=== PATIENT | male | born 1985 | race Hispanic/Latino ===

== ENCOUNTER 2018-08-26 22:56 | Emergency (ER) | payer SELFPAY ==
[2018-08-27 00:35] VITALS: BP 157/111
== END 2018-08-27 02:30 | disposition left against medical advice (07) ==
LOC: ED 22:56
DX: M54.2 Cervicalgia (principal); M54.9 Dorsalgia, unspecified; Z53.21 Procedure and treatment not carried out due to patient leaving prior to being seen by health care provider

== ENCOUNTER 2018-10-21 15:44 | Emergency (ER) | payer OTHER ==
[2018-10-21 16:25] VITALS: BP 144/94
--- NOTE | 2018-10-21 16:25 | Event Note ---
ED Screening Note ED Screening Note: states his blood pressure was elevated before he came to the emergency room pt has never been on blood pressure medication previously but states it has been elevated in the past states he has had intermittent blurry vision pmhx TBI, herniated disc sees a neurologist and chiropractor +marijuana use denies tobacco use denies ETOH use This initial assessment/diagnostic orders/clinical plan/treatment(s) is/are subject to change based on patients health status, clinical progression and re-assessment by fellow clinical providers in the ED. Further treatment and workup at subsequent clinical providers discretion. Patient/guardian urged not to elope from the ED as their condition may be serious if not clinically assessed and managed. Initial orders include: labs, CT head
[2018-10-21 16:46] LABS: Basophils % (Auto) 0.4 % (0.0-1.8); Eosinophils # (Auto) 0.1 K/mm3 (0.0-0.4); Eosinophils % (Auto) 0.7 % (0.0-4.3); Hemoglobin 15.5 gm/dl (11.8-15.2); Lymphocytes # (Auto) 2.8 K/mm3 (1.2-5.4); Lymphocytes % (Auto) 21.8 % (13.4-35.0); Mean Corpuscular HGB Conc 32 % (32-34); Mean Corpuscular Volume 87 fl (84-94); Monocytes % (Auto) 7.7 % (0.0-7.3); Platelet Count 247 K/mm3 (140-440); Red Blood Count 5.53 M/mm3 (3.65-5.03); Red Cell Distribution Width 14.9 % (13.2-15.2)
[2018-10-21 17:21] LABS: BUN/Creatinine Ratio 14; Blood Urea Nitrogen 14 mg/dL (9-20); Calcium 9.9 mg/dL (8.4-10.2); Hemolysis Index 16
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
== END 2018-10-21 19:35 | disposition home or self-care (01) ==
LOC: ED 15:44
DX: I10 Essential (primary) hypertension (principal); J45.909 Unspecified asthma, uncomplicated; F17.200 Nicotine dependence, unspecified, uncomplicated; Z79.899 Other long term (current) drug therapy
CPT/HCPCS: 36415; 70450; 80048; 85025; 99284

== ENCOUNTER 2019-11-03 22:31 | Emergency (ER) | payer SELFPAY ==
[2019-11-04] MEDS ORDERED: HYDROcodone/ACETAMINOPHEN 5-325 MG TAB PO ONE (04:33)
[2019-11-04] MEDS ORDERED: IBUPROFEN 800 MG TAB PO ONE (04:33)
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
[2019-11-04 06:40] VITALS: BP 121/89
== END 2019-11-04 06:40 | disposition home or self-care (01) ==
LOC: ED 22:31
DX: S43.402A Unspecified sprain of left shoulder joint, initial encounter (principal); S20.211A Contusion of right front wall of thorax, initial encounter; R56.9 Unspecified convulsions; J45.909 Unspecified asthma, uncomplicated; F17.200 Nicotine dependence, unspecified, uncomplicated; Z98.890 Other specified postprocedural states; Z79.2 Long term (current) use of antibiotics; Z79.899 Other long term (current) drug therapy; V23.4XXA Motorcycle driver injured in collision with car, pick-up truck or van in traffic accident, initial encounter; Y93.89 Activity, other specified; Y92.410 Unspecified street and highway as the place of occurrence of the external cause; Y99.8 Other external cause status

== ENCOUNTER 2021-12-06 12:04 | Emergency (ER) | payer SELFPAY | END 2021-12-06 17:12 | disposition left against medical advice (07) | LOC: ED 12:04 | DX: R42 Dizziness and giddiness (principal); Z53.21 Procedure and treatment not carried out due to patient leaving prior to being seen by health care provider ==